=== PATIENT | male | born 1945 | race Caucasian/White ===

== ENCOUNTER 2021-05-29 03:20 | Emergency (ER) | payer OTHER ==
[~2021-05-29] VITALS: Ht 172.7 cm; Wt 71.2 kg
== END 2021-05-29 06:27 | disposition home or self-care (01) ==
LOC: ER 03:20
DX: R00.2 Palpitations (principal); I48.91 Unspecified atrial fibrillation; I50.9 Heart failure, unspecified; Z79.899 Other long term (current) drug therapy
CPT/HCPCS: 93005; 93010; 99283-25

== ENCOUNTER 2023-02-06 07:29 | Day surgery (SDC) | payer OTHER ==
[~2023-02-06] VITALS: Ht 172.7 cm; Wt 78.1 kg
[~2023-02-06 07:29] MED LIST: CARV3.125; ENTRESTO 49 MG1 EACH; OMEP20ER PO; Pravastatin Sod80 MG PO; SPIR25; TAMS.4ER; Viagra100 MG PO; XARELTO20 MG PO
--- NOTE | 2023-02-06 08:19 | NUR ---
02/06/23 0819 Radha Dodson TETRACAINE TO LEFT EYE AT 0815 PLEDGET TO LEFT EYE AT 0817 BY [facility].G
[2023-02-06 09:35] VITALS: BP 115/43
--- NOTE | 2023-02-06 09:43 | NUR ---
02/06/23 0943 Manuel Llanos IV REMOVED. SITE WNL.
== END 2023-02-06 09:47 | disposition home or self-care (01) ==
LOC: ORSCSDS 07:29
PROVIDERS: Ophthalmology
PROC: 08DK3ZZ Extraction of Left Lens, Percutaneous Approach (ICD-10-PCS; principal; 2023-02-06 09:00)
DX: H25.12 Age-related nuclear cataract, left eye (principal); H21.81 Floppy iris syndrome; I10 Essential (primary) hypertension; F43.10 Post-traumatic stress disorder, unspecified; K21.9 Gastro-esophageal reflux disease without esophagitis; G47.30 Sleep apnea, unspecified; D64.9 Anemia, unspecified; I48.91 Unspecified atrial fibrillation; Z79.899 Other long term (current) drug therapy
CPT/HCPCS: J2001; J2250; J3010; J3301; J7040; V2632